=== PATIENT | male | born 1975 | race Caucasian/White ===

== ENCOUNTER 2020-08-22 08:58 | Emergency (ER) | payer BC, SELFPAY ==
--- NOTE | ~2020-08-22 | XR_ITS ---
EXAMINATION: XR finger 3rd RT min 2V INDICATION: Right third finger pain TECHNIQUE: Four views of the right third finger are obtained. COMPARISON: None available FINDINGS: There is soft tissue swelling of the finger, particularly near the proximal interphalangeal joint. No radiopaque foreign body is identified. The visualized osseous structures are unremarkable. The joint spaces are maintained. IMPRESSION: 1. Soft tissue swelling without acute osseous abnormality or radiopaque foreign body. Reviewed, dictated and finalized at location A. [employer]
[2020-08-22 09:10] VITALS: BP 101/87; PULSE 71; RESP 18; TEMP 37.2; O2SAT 100
--- NOTE | 2020-08-22 09:44 | ED.GENADULT ---
HPI - General Adult General Chief complaint: Extremity Injury, Upper Stated complaint: right middle finger swollen and red Time Seen by Provider: 08/22/20 09:36 Source: patient and RN notes reviewed Mode of arrival: ambulatory Limitations: no limitations History of Present Illness HPI narrative: 45-year-old male presents with complaints of RT middle (3rd) finger pain, redness, and swelling for the past 2 days. Marvin says approximately 3 weeks ago he had problems with RT middle finger, sandpaper finger callus down and warm soaks noted improvement, over the past 24 hours symptoms increased with pain, redness, and swelling. Ibuprofen (last this morning prior to arrival) with little relief. 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 Denies numbness or tingling. No weakness of finger(s). Denies fever or chills. Denies immobility. Exacerbation is movement and palpation of finger. Relieving factor is rest and Ibuprofen a little. Dominant hand is RIGHT HAND. Denies break in skin or drainage. Tetanus NOT up to date, will up date today. Remains active. The patient reports he have not been diagnosed with COVID-19. The patient reports he is not waiting for the results of a COVID-19 lab test. The patient reports he do not have weakness or fatigue. The patient reports he do not have a new or worsening cough or shortness of breath. Denies chest pain. The patient reports he do not have any rhinorrhea, congestion, loss of taste, sore throat, nausea, vomiting, abdominal pain, and diarrhea. Tolerating po intake well. Traveled to [place] for work 1 week ago but no exposures to his knowledge and only worked. Denies concerns for COVID-19 or exposures. At this time, patient is not suspected of having COVID-19. Some parts of this dictation were generated by voice recognition software and may contain typographical and/or grammatical inaccuracies. Related Data Home Medications Medication Instructions Recorded Confirmed alprazolam 1 mg PO BID PRN 08/22/20 08/22/20 cyclobenzaprine 10 mg PO TID PRN 08/22/20 08/22/20 naproxen 500 mg PO BID 08/22/20 08/22/20 prednisone 10 mg PO BID 08/22/20 08/22/20 Allergies Allergy/AdvReac Type Severity Reaction Status Date / Time No Known Allergies Allergy Verified 08/22/20 09:25 Review of Systems Review of Systems: Narrative: CONSTITUTIONAL: Denies fever, chills, sweats. EYES: Denies visual changes, redness, discharge. ENT: Denies rhinorrhea, congestion, sore throat, otalgia. CARDIOVASCULAR: Denies chest pain, palpitations, edema. RESPIRATORY: Denies dyspnea, wheezing, cough. GASTROINTESTINAL: Denies abdominal pain, nausea, vomiting, diarrhea. GENITOURINARY: Denies dysuria, hematuria, abnormal discharge. SKIN: Denies rash or itching. MUSCULOSKELETAL: Denies acute back pain or myalgia. Complains of RT middle (3rd) finger with redness, swelling, and tenderness. NEUROLOGIC: Denies numbness or focal weakness. PSYCHIATRIC: Denies anxiety or depression. All systems reviewed & are unremarkable except as noted in HPI and below PMFSH Past Medical History Medical History (Updated 08/22/20 @ 10:09 by LON Aiken) Anxiety Tendonitis of elbow or forearm RT Surgical History Surgical History (Updated 08/22/20 @ 09:59 by LON Aiken) History of hand surgery LT 2nd finger Family History Family History (Updated 08/22/20 @ 10:01 by LON Aiken) Father Asthma Bradycardia Pacemaker inserted Mother Alive and well Social History Social History (Updated 08/22/20 @ 10:02 by LON Aiken) Smoking packs per day: 1 Smoking cigarettes per day: 20.0 Years smoked: 25 Smoking pack-years: 25.00 Smoking status: Current every day smoker Tobacco type: cigarettes and e-cigarettes/vaping Second hand tobacco smoke exposure: No Alcohol intake: current Substance use: curr
[2020-08-22] MEDS: TETANUS,DIPHTHERIA,AC PERTUSSIS ADULT (0.5 ML) BOOSTRIX IM (09:58)
== END 2020-08-22 10:13 | disposition home or self-care (01) ==
PROVIDERS: Emergency Provider Nurse Practitioner Family; PCP Family Medicine
DX: L03.011 Cellulitis of right finger (principal); S63.632A Sprain of interphalangeal joint of right middle finger, initial encounter; X58.XXXA Exposure to other specified factors, initial encounter; Z23 Encounter for immunization; F41.9 Anxiety disorder, unspecified; F17.210 Nicotine dependence, cigarettes, uncomplicated
CPT/HCPCS: 73140; 90471; 90715; 99213; G0463